=== PATIENT | male | born 1980 | race Caucasian/White ===

== ENCOUNTER 2019-12-28 21:43 | Inpatient (IN) | payer MEDICAID, OTHER ==
--- NOTE | 2019-12-28 22:09 | ED ---
Skin Complaint - HPI Summary HPI Summary: 39 y/o M presenting to [facility] with a chief complaint of multiple erythematous sores with purulent discharge initially onset 4-5 days ago. He reports that he had showered outside using an exfoliating glove and noticed a sensitive spot in the right gluteal cleft. He states he had a robe lying on a chair outside and put it back on before going back inside and is concerned that there was a spider inside the robe, causing him to be bitten and subsequently causing the development of a rash extending buttocks into the thighs. The pain is throughout the right leg, and there is swelling in the right ankle. Symptoms rated 6/10 in severity. Touch and clothing aggravate the pain. He endorses intermittent sensation of fevers and chills. He denies any nausea, vomiting, diarrhea, constipation. He notes a history of severe cellulitis in the upper extremity multiple years ago. Admits to marijuana use. Nonsmoker, no EtOH use. Medications reviewed. Allergies noted. - History of Current Complaint Time Seen by Provider: 12/28/19 21:54 Stated Complaint: SPIDER BITE RASH ON THIGHS PER PT Hx Obtained From: Patient Onset/Duration: Started Days Ago - 4-5, Still Present Timing: Constant Onset Severity: Mild Current Severity: Moderate Pain Intensity: 6 Pain Scale Used: 0-10 Numeric Skin Location: Other: - buttocks extending to the thighs Character: Pain, Redness Aggravating Symptom(s): Clothing, Touch Alleviating Symptom(s): Clothing Removal Associated Signs & Symptoms: Fever - sensation, Chills - sensation, Rash Related History: Possible Reaction to: Insect - patient concerned for spider bite - Allergy/Home Medications Allergies/Adverse Reactions: Allergies Allergy/AdvReac Type Severity Reaction Status Date / Time No Known Allergies Allergy Verified 12/28/19 21:59 PMH/Surg Hx/FS Hx/Imm Hx Endocrine/Hematology History: Denies: Hx Diabetes Cardiovascular History: Denies: Hx Hypertension Musculoskeletal History: Reports: Other Musculoskeletal History - cellulitis - Surgical History Surgical History: None Surgery Procedure, Year, and Place: none Infectious Disease History: Yes Infectious Disease History: Denies: Traveled Outside the [place] in Last 30 Days - Family History Known Family History: Negative: Renal Disease, Respiratory Disease, Seizure Disorder - Social History Alcohol Use: None Hx Substance Use: Yes Substance Use Type: Reports: Marijuana Hx Tobacco Use: No Smoking Status (MU): Never Smoked Tobacco Review of Systems Positive: Fever - sensation, Chills - sensation Negative: Vomiting, Diarrhea, Nausea, Other - constipation Positive: Myalgia - right leg, Edema - r ankle Positive: Other - diffuse erythematous sores under the buttocks into the thighs All Other Systems Reviewed And Are Negative: Yes Physical Exam - Summary Physical Exam Summary: Constitutional: Well-developed, Well-nourished, Alert. (-) Distressed Skin: Warm, Dry; Erythema in the bilateral gluteal cleft that is indurated and tender extending into the upper posterior thigh bilaterally, No scrotal erythema , No areas of fluctuance or drainage, No crepitus HENT: Normocephalic; Atraumatic Eyes: Conjunctiva normal Neck: Musculoskeletal ROM normal neck. (-) JVD, (-) Stridor, (-) Tracheal deviation Cardio: Rhythm regular, rate normal, Heart sounds normal; Intact distal pulses; Radial pulses are 2+ and symmetric. (-) Murmur Pulmonary/Chest wall: Effort normal. (-) Respiratory distress, (-) Wheezes, (-) Rales Abd: Soft, (-) tenderness, (-) Distension, (-) Guarding, (-) Rebound Musculoskeletal: (-) Edema Lymph: (-) Cervical adenopathy Neuro: Alert, Oriented x3 Psych: Mood and affect Normal Triage Information Reviewed: Yes Vital Signs On Initial Exam: Initial Vitals Temp Pulse Resp BP Pulse Ox 98.3 F 98 18 144/102 98 12/28/19 21:56 12/28/19 21:56 12/28/19 21:56 12/28/19 21:56 12/28/19 21:56 Vital Signs Reviewed: Yes Procedures - Sedation Patient Received Moderate/Deep Sedation with Procedure: No Diagnostics - Vital Signs Vital Signs Temp Pulse Resp BP Pulse Ox 12/28/19 21:56 98.3 F 98 18 144/102 98 - Laboratory Result Diagrams: 12/28/19 22:47 12/28/19 22:47 Lab Statement: Any lab studies that have been ordered have been reviewed, and results considered in the medical decision making process. - CT Pelvic CT CT Interpretation Completed By: Radiologist Summary of CT Findings: Impression: Moderate soft tissue swelling and skin thickening in bilateral medial gluteal region extending into the perianal region likely representing cellulitis. No focal collection. No drainable abscess formation. No gas within the soft tissues. Findings most likely represent cellulitis. Dr. Cordon has reviewed this report. - EKG 2148 Cardiac Rate: NL - 74 BPM EKG Rhythm: Sinus Rhythm EKG Comparison: No Significant Change - Unchanged from previous on 09/16/2013. Summary of EKG Findings: NSR at rate of [address] depression in aVF, V4. No STEMI. Unchanged from previous on 09/16/2013. Dr. Cordon has reviewed and interpreted this EKG. Re-Evaluation - Re-Evaluation First Eval Re-Evaluation Time: 23:50 Comment: Patient agreeable with plan for admission Course/Dx - Course Course Of Treatment: Patient is here cellulitis to his gluteal cleft and going into his thighs. Patient has no perineal cellulitis or scrotal erythema. However, given patient's saline-soaked location, a CT scan was performed. Patient is noted face abscess or signs of Jean's gangrene. Patient's blood work was grossly unremarkable. However, given patient's extensive cellulitis and the location, patient was admitted to the hospital for IV antibiotics. - Diagnoses Provider Diagnoses: Cellulitis - Physician Notifications Discussed Care Of Patient With: Rose Perez - hospitalist Time Discussed With Above Provider: 23:55 Instructed by Provider To: Other - I discussed the patients case with Dr. Perez , who accepts the patient for admission. Discharge ED - Sign-Out/Discharge Documenting (check all that apply): Patient Departure - Patient accepted for admission by Dr. Perez. - Discharge Plan Condition: Stable Disposition: ADMITTED TO [facility] - Billing Disposition and Condition Condition: STABLE Disposition: Admitted to [facility] - Attestation Statements Document Initiated by Christy: Yes Documenting Scribe: Leticia Ledbetter Provider For Whom Christy is Documenting (Include Credential): Shashank Cordon MD Scribe Attestation: Leticia Carpenter, scribed for Shashank Cordon MD on 12/29/19 at 0122. Scribe Documentation Reviewed: Yes Provider Attestation: The documentation as recorded by the Leticia farias accurately reflects the service I personally performed and the decisions made by me, Shashank Cordon MD Status of Scribe Document: Viewed
[2019-12-28] MEDS ORDERED: NS 0.9% 1000 ML** 1,000 ML IV ONE (22:11)
[2019-12-28] MEDS ORDERED: Vancomycin(*) 1,500 MG in NS 0.9% 250 ML* 250 ML IVPB ONE (22:13)
[2019-12-28] MEDS ORDERED: Piperacillin/Tazobac ADVAN(*) 3.375 GM in NS 0.9% 100 ML* 100 ML IVPB ONE (22:13)
[2019-12-28 22:54] LABS: ABS Eosinophils 0.4 10^3/ul (0-0.6); ABS Lymphocytes 2.1 10^3/ul (1.0-4.8); ABS Monocytes 0.5 10^3/ul (0-0.8); ABS Neutrophils 3.7 10^3/ul (1.5-7.7); Eosinophil % 6.2 %; Hematocrit 40 % (42-52); Hemoglobin 13.6 g/dL (14.0-18.0); Lymphocyte % 30.5 %; Mean Corpuscular HGB Conc 34 g/dL (31-36); Mean Corpuscular Hemoglobin 31 pg (27-31); Mean Corpuscular Volume 92 fL (80-94); Mean Platelet Volume 8.2 fL (7.4-10.4); Nucleated Red Blood Cells % 0.1; Platelet Count 262 10^3/uL (150-450); Red Blood Count 4.39 10^6 /uL (4.18-5.48); Red Cell Distribution Width 14 % (10-15); White Blood Count 6.8 10^3/uL (3.5-10.8)
[2019-12-28 23:11] LABS: Albumin 3.9 g/dL (3.2-5.2); Albumin/Globulin Ratio 1.7 (1-3); BUN/Creatinine Ratio 11.5 (8-20); C Reactive Protein 6.98 mg/L (<8.01); EGFR African American 132.7 (>60); EGFR Non-African American 109.7 (>60); Globulin 2.3 g/dL (2-4); Potassium 3.6 mmol/L (3.5-5.0); Total Bilirubin 0.4 mg/dL (0.2-1.0); Total Protein 6.2 g/dL (6.4-8.9)
[2019-12-28] MEDS ORDERED: Iohexol 300* (CONTRAST) 10 ML SDV IV ONE (23:18)
[2019-12-29] MEDS ORDERED: Vancomycin per Pharmacy* NOTE FOLLOW UP SCH (01:00)
[2019-12-29] MEDS ORDERED: NS 0.9% 1000 ML** 1,000 ML IV SCH (01:00)
--- NOTE | 2019-12-29 01:23 | HP ---
History of Present Illness - History of Present Illness Reason for Visit: Redness and Pain on perianal area History of Present Illness: This is a 39 M with no significant past medical history presented with complaint of redness and pain on consuelo-anal area for 4 days. According to patient he was apparently well 4 days ago then he started noticing burning pain on his buttocks. 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 Then he put his robe and after 10 minutes he started having pain and redness. He also tells me that if there was any insect or spider on his robe as he was showering outside. Since then he started having pain and redness and is progressing. Then later he started noticing yellowish discharge. His pain is sharp, 6/10 and is aggravated by touch with radiation to right leg. SInce this morning he started having subjective associated with chills and rigor. No maximum temperature recorded at home. SO, this pain and fever prompted him to come to the ED. HE adds that since 4-5 hours he is having lower abdominal pain and feels sore on his perineal area. He states that he feel like if somewhat has kicked on his scrotum. He is also having dysuria but no increased frequency. He has not urinated since he has been in the ED. He also has left upper chest pain which has been present for years, dull type and nonexertional. He denies cough, SOB, palpitation, nausea, vomiting, numbness and tingling. In ED, his vitals sign are stable. Blood work is normal. Pelvic CT showed Gluteal cellulitis with no gas or abscess. EKG showing Mild ST depression but no change since previous one. He received vancomycin, zosyn and IVF in ED and hospitalist service was asked to admit him for cellulitis and pain management. - Past Medical History Past Medical History: He does not have PCP and has not been to Doctor for many years. SO he is not aware about history of HTN, DM, Heart Disease. But he tells me that he gets frequent Bronchitis but not on any medication. - Past Surgical History Past Surgical History: 1. Hand Surgery 2. Hernia repair as kid - Past Family History Past Family History: Family history positive for Cancer, Heart disease. Both of his parents have Hepatitis C. 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 He does not have insurance. He denies tobacco and alcohol use. He smokes Marijhuana but no IV drug use. He is full code. Medications: None Allergies/Adverse Reactions: Allergies Allergy/AdvReac Type Severity Reaction Status Date / Time No Known Allergies Allergy Verified 12/28/19 21:59 Review of Systems - Review of Systems Constitutional: Positive: Fever, Chills, Sweats. Negative: Weakness, Malaise, Other Eyes: Negative: Pain, Vision Change, Conjunctivae Inflammation, Eyelid Inflammation, Redness, Other ENT: Negative: Ear Pain, Ear Discharge, Nose Pain, Nose Discharge, Nose Congestion, Mouth Pain, Mouth Swelling, Throat Pain, Throat Swelling, Other Respiratory: Negative: Cough, Dry, Shortness of Breath, Hemoptysis, SOB with Excertion, Pleuritic Pain, Sputum, Wheezing Cardiovascular: Positive: Chest Pain. Negative: Palpitations, Orthopnea, Paroxysmal Noc. Dyspnea, Edema, Light Headedness, Other Gastrointestinal: Positive: Abdominal Pain. Negative: Nausea, Vomiting, Diarrhea, Constipation, Melena, Hematochezia, Other Genitourinary: Positive: Dysuria. Negative: Frequency, Incontinence, Hematuria , Retention, Other Musculoskeletal: Positive: Leg Pain. Negative: Neck Pain, Shoulder Pain, Arm Pain, Back Pain, Hand Pain, Foot Pain, Other Skin: Positive: Lesions. Negative: Rash, Popeye, Bruising, Other Neurological/Mental Status: Negative: Weakness, Numbness, Incoordination, Change in Speech, Confusion, Seizures, Other Exam Vital Signs: Vital Signs (72 hours) 12/28/19 12/28/19 12/28/19 21:56 22:06 22:56 Temperature 98.3 F Pulse Rate 98 86 77 Respiratory 18 Rate Blood Pressure 144/102 112/81 (mmHg) O2 Sat by Pulse 98 97 100 Oximetry 12/28/19 12/28/19 12/29/19 23:00 23:56 00:00 Temperature Pulse Rate 70 85 77 Respiratory Rate Blood Pressure 124/84 (mmHg) O2 Sat by Pulse 98 99 99 Oximetry 12/29/19 12/29/19 12/29/19 00:06 00:26 01:00 Temperature Pulse Rate 87 83 79 Respiratory Rate Blood Pressure 139/90 (mmHg) O2 Sat by Pulse 98 97 98 Oximetry Exam: GENERAL APPEARANCE: well-nourished male in no acute distress. HEENT: Normocephalic and atraumatic. No scleral icterus. Pupils are equal, round , and reactive to light and accommodation NECK: Supple. Trachea is midline. No evidence of thyroid enlargement. No lymphadenopathy or tenderness. CHEST: Symmetric. Nontender to palpation. LUNGS: Breath sounds are equal bilaterally. No added sounds HEART: Regular rhythm.normal S1 and S2. No murmurs, gallops, or rubs. ABDOMEN: Soft, obese and nontender. No mass, tenderness, guarding, or rebound. No organomegaly or hernia. Bowel sounds are present. No CVA tenderness or flank mass. SKIN: Redness present on bilateral medial gluteal area with no purulent discharge and is tender. Redness extended till inner thigh. No redness and tenderenss on scrotum and penile area. No fluctuance noted. EXTREMITIES: No clubbing and cyanosis NEUROLOGIC: No focal sensory or motor deficits are noted. Cranial nerves II through XII are intact. Deep tendon reflexes are intact. Result Diagrams: 12/28/19 22:47 12/28/19 22:47 Assessment/Plan - Assessment/Plan Assessment: This is a 39 M with no significant PMH presented with acute redness, pain and discharge on bilateral gluteal area associated with fever and chills preceeded by questionable insect bite. FOund to have non purulent cellulitis of Gluteal and perianal area with no evidence of abscess and gas on CT. Plan: 1. Cellulitis: Bilateral gluteal cellulitis- nonpurulent. -D/D: Erysipelas, Abscess -Cause: secondary to trauma or insect bite -Vitals stable and normal leucocytes -We will start him on Clindamycin- covering for MRSA and also anaerobes given the location of the cellulitis. -Scrotum(has piercing) and Penile area normal- no concern for gangrene -Pain: As started has not taken any pain meds we will first start with Tylenol and NSAIDS. If pain still not controlled then will escalate his pain meds. 2. Dysuria - dysuria and abdominal pain(although his history is inconstinent) - We will send Urinalysis to rule out UTI and we will also rule out Gonorrhea and Chlamydia -We start gram negative coverage based on the result 3. DVT prophylaxis -On lovenox 4. Full code Attestation Documenting Resident: Dr. Early Supervising Physician: Dr. Perez Attending/Supervising Physician Comment: Dr. Perez Patient seen and discussed with Dr. Early. Agree with assessment and plan. Admission for close monitoring of cellulitis given region of infection. Would consider STI testing as well. Attestation: This service has been performed in part by a resident under the direction of a teaching physician.I, Dr. Perez, performed the service, or was physically present during the critical, or lea portions of the service, furnished by the resident. I participated in the management of the patient.
[2019-12-29 02:13] LABS: Urine Appearance Clear; Urine Bilirubin Negative (Negative); Urine Blood Negative (Negative); Urine Color Straw; Urine Glucose Negative (Negative); Urine Ketones Negative (Negative); Urine Nitrite Negative (Negative); Urine Protein Negative (Negative); Urine Specific Gravity 1.019 (1.010-1.030); Urine Urobilinogen Negative (Negative)
[2019-12-29] MEDS ORDERED: diPHENhydraMINE PO* 25 MG PO ONE (02:49)
[2019-12-29] MEDS: Acetaminophen TAB* 325 MG PO PRN ×2 (03:10→07:59)
[2019-12-29] MEDS: Clindamycin 600 MG/D5W BAG(*) 600 MG/50 ML BAG IV SCH ×2 (07:46→15:43)
[2019-12-29] MEDS: Enoxaparin(*) 40 MG/0.4 ML SYR SUBCUT SCH (07:46)
[2019-12-29] MEDS: Morphine INJ* 2 MG/ML 1 ML SYRINGE (TWO MG - NEW SYRINGE VERSION) IV PRN ×2 (08:20→18:00)
[2019-12-29] MEDS ORDERED: Vancomycin(*) 1,500 MG in NS 0.9% 250 ML* 250 ML IVPB SCH (09:00)
[2019-12-29] MEDS ORDERED: Lorazepam PYXIS KEY PRN (09:02)
[2019-12-29] MEDS ORDERED: LORazepam INJ* 2 MG/ML 1 ML VIAL ONE (09:03)
[2019-12-29] MEDS: LORazepam INJ* 2 MG/ML 1 ML VIAL IV PUSH PRN (11:49)
--- NOTE | 2019-12-29 13:44 | PN ---
Subjective Date of Service: 12/29/19 Interval History: Mr. Zarate is feeling okay this morning. He is having a lot of pain in his groin and inner thighs. He thinks bilat inner thighs are very swollen. He is feeling anxious. Has a bit of a cough this morning and feeling a little SOB. Denies CP. Nursing reports continued cough and c/o SOB. Family History: Unchanged from Admission Social History: Unchanged from Admission Past Medical History: Unchanged from Admission Objective Active Medications: Acetaminophen (Tylenol Tab*) 650 mg PO Q6H PRN PAIN - MILD Enoxaparin Sodium (Lovenox(*)) 40 mg SUBCUT Q24H HEBER Clindamycin HCl/Dextrose (Cleocin 600 Mg/50 Ml(*)) 600 mg in 50 mls @ 100 mls/ hr IV Q8H HEBER Lorazepam (Ativan Inj*) 1 mg IV PUSH Q6H PRN ANXIETY Morphine Sulfate (Morphine Inj (Syringe))*) 2 mg IV Q4H PRN PAIN - SEVERE Vital Signs - 8 hr 12/29/19 12/29/19 12/29/19 06:08 07:32 08:00 Temperature 98.3 F Pulse Rate 69 Respiratory 20 17 18 Rate Blood Pressure 109/52 (mmHg) O2 Sat by Pulse 96 Oximetry 12/29/19 12/29/19 12/29/19 10:26 10:29 11:49 Temperature 98.4 F Pulse Rate 69 Respiratory 18 18 32 Rate Blood Pressure 116/64 (mmHg) O2 Sat by Pulse 98 Oximetry Oxygen Devices in Use Now: None Appearance: Middle-aged male sitting in bed in NAD Ears/Nose/Mouth/Throat: Mucous Membranes Moist Neck: NL Appearance and Movements; NL JVP, Trachea Midline Respiratory: Symmetrical Chest Expansion and Respiratory Effort, Clear to Auscultation Cardiovascular: NL Sounds; No Murmurs; No JVD, RRR Abdominal: NL Sounds; No Tenderness; No Distention Extremities: - - Moderate nonpitting bilat inner thighs and groin Skin: - - Erythema to bilat medial thighs and groin Neurological: Alert and Oriented x 3 Lines/Tubes/Other Access: Clean, Dry and Intact Peripheral IV Nutrition: Taking PO's Result Diagrams: 12/28/19 22:47 12/28/19 22:47 Assess/Plan/Problems-Billing Assessment: Mr. Zarate is a 39 yo M with no significant PMH who presented to the ED with c/o pain and redness in the groin and was found to have extensive cellulitis. - Patient Problems (1) Cellulitis of groin Code(s): L03.314 - CELLULITIS OF GROIN Comment: - Nonpurulent, extending from buttocks to medial thighs - CT on admission showing cellulitis in bilat medial gluteal region extending into perianal area - Unclear etiology: trauma (scrubbing with gloves) vs insect bites - Attempt to obtain culture today; no obvious drainage, but patient reports weeping - Continue clinda, morphine (2) Cough Code(s): R05 - COUGH Comment: - Occasional nonproductive cough noted this morning with reports of SOB - Cough is reported to be chronic from patient's mother (patient does smoke marijuana regularly), and SOB may be r/t anxiety - Will need to r/o COVID based on criteria, but suspicion is low - Swab today and transfer to COVID unit (3) DVT prophylaxis Code(s): Z29.9 - ENCOUNTER FOR PROPHYLACTIC MEASURES, UNSPECIFIED Comment: - Lovenox (4) Full code status Code(s): Z78.9 - OTHER SPECIFIED HEALTH STATUS Comment: Status and Disposition: Observation. Anticipate d/c home when cellulitis is improving. Attending: Mica Saba
[2019-12-29] MEDS: Nystatin OINT* 15 GM TOPICAL SCH (21:06)
--- NOTE | 2019-12-29 22:17 | PN ---
Progress Note - Progress Note Date of Service: 12/29/19 Note: Patient seen for cough and shortness of Breath. According to patient he started having cough and SOB since this morning at around 4-5 AM. He states that he drank cold liquid and since then he started having shortness of breath at rest and dry cough. He denies palpitation, fever, chills and loss of appetite. He is also complaining of back pain which he thinks is because of lying on a bed for a long time. Patient is saturating 100% on 1 L of oxygen and states that oxygen is making him feel better. He denies exposure to COVID patient and is staying indoor for months. Given the nature of symptoms which is so acute there is low suspicion of COVID; although could have been asymptomatic carrier. He has already been swabbed. I will order and CXR, sputum culture(if able to cough up) and also ABG as he is hyperventilating. We will follow with the results.
[2019-12-30] MEDS: LORazepam INJ* 2 MG/ML 1 ML VIAL IV PUSH PRN ×3 (00:53→21:05)
[2019-12-30] MEDS: Morphine INJ* 2 MG/ML 1 ML SYRINGE (TWO MG - NEW SYRINGE VERSION) IV PRN ×3 (00:53→23:14)
[2019-12-30] MEDS: Clindamycin 600 MG/D5W BAG(*) 600 MG/50 ML BAG IV SCH ×3 (01:32→17:33)
[2019-12-30 07:04] LABS: ABS Eosinophils 0.4 10^3/ul (0-0.6); ABS Monocytes 0.5 10^3/ul (0-0.8); ABS Neutrophils 3.4 10^3/ul (1.5-7.7); Hematocrit 39 % (42-52); Hemoglobin 13.3 g/dL (14.0-18.0); Lymphocyte % 30.7 %; Mean Corpuscular HGB Conc 34 g/dL (31-36); Mean Corpuscular Hemoglobin 32 pg (27-31); Mean Corpuscular Volume 92 fL (80-94); Mean Platelet Volume 8.3 fL (7.4-10.4); Nucleated Red Blood Cells % 0.1; Platelet Count 232 10^3/uL (150-450); Red Blood Count 4.22 10^6 /uL (4.18-5.48); Red Cell Distribution Width 14 % (10-15); White Blood Count 6.3 10^3/uL (3.5-10.8)
[2019-12-30 07:20] LABS: BUN/Creatinine Ratio 12.8 (8-20); C Reactive Protein 11.6 mg/L (<8.01); Calcium 8.6 mg/dL (8.6-10.3); EGFR African American 132.7 (>60); EGFR Non-African American 109.7 (>60); Potassium 4.3 mmol/L (3.5-5.0)
[2019-12-30] MEDS: Enoxaparin(*) 40 MG/0.4 ML SYR SUBCUT SCH (07:51)
[2019-12-30] MEDS: Nystatin OINT* 15 GM TOPICAL SCH ×2 (07:52→23:19)
[2019-12-30] MEDS: diPHENhydraMINE PO* 25 MG PO PRN ×2 (13:33→23:15)
--- NOTE | 2019-12-30 15:01 | PN ---
Subjective Date of Service: 12/30/19 Interval History: Mr. Zarate is feeling poor today. He is feeling very SOB. Usually has a wet cough at baseline, but cough is now very dry. Coughing fits and exertion cause significant SOB. Feels like he cannot take a deep breath. He does not think cellulitis is improving. Buttocks and medial thighs are very itchy. Nursing reports elevated RR and anxiety. Family History: Unchanged from Admission Social History: Unchanged from Admission Past Medical History: Unchanged from Admission Objective Active Medications: Acetaminophen (Tylenol Tab*) 650 mg PO Q6H PRN PAIN - MILD Diphenhydramine HCl (Benadryl Po*) 25 mg PO Q6H PRN ITCHING Enoxaparin Sodium (Lovenox(*)) 40 mg SUBCUT Q24H HEBER Clindamycin HCl/Dextrose (Cleocin 600 Mg/50 Ml(*)) 600 mg in 50 mls @ 100 mls/ hr IV Q8H HEBER Lorazepam (Ativan Inj*) 1 mg IV PUSH Q6H PRN ANXIETY Morphine Sulfate (Morphine Inj (Syringe))*) 2 mg IV Q4H PRN PAIN - SEVERE Nystatin (Nystatin Oint*) 1 applic TOPICAL BID HEBER Vital Signs - 8 hr 12/30/19 12/30/19 12/30/19 07:51 08:00 09:16 Temperature 97.4 F Pulse Rate 69 Respiratory 19 20 20 Rate Blood Pressure 101/57 (mmHg) O2 Sat by Pulse 99 Oximetry 12/30/19 12/30/19 12/30/19 10:16 12:21 12:45 Temperature 97.6 F Pulse Rate 63 Respiratory 18 40 40 Rate Blood Pressure 113/71 (mmHg) O2 Sat by Pulse 100 Oximetry Oxygen Devices in Use Now: None Appearance: Middle-aged male lying in bed, anxious, but in NAD Ears/Nose/Mouth/Throat: Mucous Membranes Moist Neck: NL Appearance and Movements; NL JVP, Trachea Midline Respiratory: Symmetrical Chest Expansion and Respiratory Effort, Clear to Auscultation Cardiovascular: NL Sounds; No Murmurs; No JVD, RRR Abdominal: NL Sounds; No Tenderness; No Distention Extremities: No Edema Skin: - - Erythema and edema to bilat medial thigh Neurological: Alert and Oriented x 3 Lines/Tubes/Other Access: Clean, Dry and Intact Peripheral IV Nutrition: Taking PO's Result Diagrams: 12/30/19 06:51 12/30/19 06:51 Assess/Plan/Problems-Billing Assessment: Mr. Zarate is a 39 yo M with no significant PMH who presented to the ED with c/o pain and redness in the groin and was found to have extensive cellulitis. - Patient Problems (1) Cellulitis of groin Code(s): L03.314 - CELLULITIS OF GROIN Comment: - Nonpurulent, extending from buttocks to medial thighs - CT on admission showing cellulitis in bilat medial gluteal region extending into perianal area - Unclear etiology: trauma (scrubbing with gloves) vs insect bites - There may be some component of gela - Attempt to obtain culture today; no obvious drainage, but patient reports weeping - Continue clinda, nystatin (2) Cough Code(s): R05 - COUGH Comment: - Occasional nonproductive cough with reports of SOB - Cough is reported to be chronic from patient's mother (patient does smoke marijuana regularly), and SOB may be r/t anxiety - CXR unremarkable - Pending COVID swab; patient is concerned that swab was not done correctly, so will reswab today per patient request (3) DVT prophylaxis Code(s): Z29.9 - ENCOUNTER FOR PROPHYLACTIC MEASURES, UNSPECIFIED Comment: - Lovenox (4) Full code status Code(s): Z78.9 - OTHER SPECIFIED HEALTH STATUS Comment: Status and Disposition: Observation. Anticipate d/c home when cellulitis is improving. Attending: Mica Saba
[2019-12-30] MEDS ORDERED: guaiFENesin/CODIENE 100mg/10mg 5 ML UDC PO PRN (20:08)
[2019-12-30] MEDS: Acetaminophen TAB* 325 MG PO PRN (23:15)
[2019-12-31] MEDS: Clindamycin 600 MG/D5W BAG(*) 600 MG/50 ML BAG IV SCH ×2 (00:30→09:16)
[2019-12-31] MEDS: LORazepam INJ* 2 MG/ML 1 ML VIAL IV PUSH PRN ×2 (09:03→21:43)
[2019-12-31] MEDS: Morphine INJ* 2 MG/ML 1 ML SYRINGE (TWO MG - NEW SYRINGE VERSION) IV PRN ×3 (09:03→21:26)
[2019-12-31] MEDS: Nystatin OINT* 15 GM TOPICAL SCH ×2 (09:05→21:22)
[2019-12-31] MEDS: Enoxaparin(*) 40 MG/0.4 ML SYR SUBCUT SCH (09:05)
[2019-12-31] MEDS ORDERED: Clindamycin 600 MG/NS BAG(*) 600 MG/50 ML BAG IV SCH (16:00)
[2019-12-31] MEDS: Piperacillin/Tazobac ADVAN(*) 3.375 GM in NS 0.9% 100 ML* 100 ML IVPB SCH (16:26)
[2019-12-31] MEDS: Albuterol HFA INHALER* 8 gm MDI INH PRN (16:27)
--- NOTE | 2019-12-31 19:40 | PN ---
Subjective Date of Service: 12/31/19 Interval History: Pt stated that he was having chest pain throughout his entire chest and somewhat moreso to his L side of his chest, tight, sharp at times, pain with breathing and increases with deep breathing. Nothing alleviates this pain. Slightly worse with walking. No radiation. Unsure if this is what he was feeling yesterday. States SOB, not brought on by anything but worse with walking. Believes increased RR since yesterday. Has cough but not coughing anything up. Requesting ativan as it has been ordered for him PRN. States that he continues to have severe pain to his buttocks and perianal area. States that he has had drainage from these areas but does not describe it and there is no drainage noted to these areas or on the jockey valet pad on his bed which he has been laying on. Believes new rash to his back and legs, states that he has been itchy "all over ". Continue to await for COVID-19 results. Family History: Unchanged from Admission Social History: Unchanged from Admission Past Medical History: Unchanged from Admission Objective Active Medications: Acetaminophen (Tylenol Tab*) 650 mg PO Q6H PRN PRN Reason: PAIN - MILD Last Admin: 12/30/19 23:15 Dose: 650 mg Albuterol (Ventolin Hfa Inhaler*) 2 puff INH Q2H PRN PRN Reason: SOB/WHEEZING Last Admin: 12/31/19 16:27 Dose: 2 puff Diphenhydramine HCl (Benadryl Po*) 25 mg PO Q6H PRN PRN Reason: ITCHING Last Admin: 12/30/19 23:15 Dose: 25 mg Docusate Sodium (Colace Cap*) 100 mg PO BID PRN PRN Reason: CONSTIPATION Enoxaparin Sodium (Lovenox(*)) 40 mg SUBCUT Q24H [facility] Last Admin: 12/31/19 09:05 Dose: 40 mg Guaifenesin/Codeine Phosphate (Robitussin Ac 100mg/10mg In 5 Ml) 5 ml PO Q4H PRN PRN Reason: COUGH Last Admin: 12/30/19 21:04 Dose: 5 ml Piperacillin Sod/Tazobactam (Sod 3.375 gm/ Sodium Chloride) 100 mls @ 25 mls/ hr IVPB Q8H [facility] Last Admin: 12/31/19 16:26 Dose: 25 mls/hr Lorazepam (Ativan Inj*) 1 mg IV PUSH Q6H PRN PRN Reason: ANXIETY Last Admin: 12/31/19 09:03 Dose: 1 mg Magnesium Hydroxide (Milk Of Magnpeyman Liq*) 30 ml PO Q6H PRN PRN Reason: CONSTIPATION Miscellaneous (Ativan Pyxis Vivas) 1 ea N/A .ATIVAN IV VIVAS PRN PRN Reason: PYXIS VIVAS Morphine Sulfate (Morphine Inj (Syringe))*) 2 mg IV Q4H PRN PRN Reason: PAIN - SEVERE Last Admin: 12/31/19 14:03 Dose: 2 mg Nystatin (Nystatin Oint*) 1 applic TOPICAL BID [facility] Last Admin: 12/31/19 09:05 Dose: 1 applic Senna (Senokot 8.6 Mg Tab*) 1 tab PO BEDTIME PRN PRN Reason: CONSTIPATION Vital Signs - 8 hr 12/31/19 12/31/19 12/31/19 14:03 15:12 16:38 Temperature 98.9 F 97.3 F Pulse Rate 93 69 Respiratory 18 20 18 Rate Blood Pressure 116/60 118/60 (mmHg) O2 Sat by Pulse 100 100 Oximetry Oxygen Devices in Use Now: Nasal Cannula Appearance: laying in bed, mild distress Eyes: No Scleral Icterus Ears/Nose/Mouth/Throat: Clear Oropharnyx Respiratory: Symmetrical Chest Expansion and Respiratory Effort - deep breathing illicits harsh loud cough, deep harsh bronchial sounds noted during cough and throughout lung mac, no other adventitious sounds noted, lungs diminished with otherwise shallow and quick breathing Cardiovascular: RRR Abdominal: NL Sounds; No Tenderness; No Distention Extremities: No Edema - of bilateral calves and feet, - Skin: - - blotchy red flat rash noted to back, bilateral flanks, upper thighs anteriorly and posteriorly, blanchable. Much darker almost purple/dusky red swollen and hardened areas to upper inner posterior thighs, bilateral lower buttocks and perianal area, no active drainage noted, uniform firmness/swelling/ color throughout, also blanchable. Neurological: Alert and Oriented x 3 - appears groggy at times but alert and stays awake throughout conversation Nutrition: Taking PO's Result Diagrams: 12/30/19 06:51 12/30/19 06:51 Microbiology and Other Data: Microbiology 12/31/19 00:00 Gram Stain - Final Sputum Expectorated 12/28/19 22:47 Aerobic Blood Culture - Preliminary Blood Venous No Growth Day 2 Anaerobic Blood Culture - Preliminary No Growth Day 2 12/28/19 22:27 Aerobic Blood Culture - Preliminary Blood Venous No Growth Day 2 Anaerobic Blood Culture - Preliminary No Growth Day 2 EKG Data: Abnormal Lab Results 12/31/19 15:59 Troponin I 0.00 Assess/Plan/Problems-Billing Assessment: Mr. Zarate is a 39 yo M with no significant PMH who presented to the ED with c/o pain and redness in the groin and was found to have extensive cellulitis. - Patient Problems (1) Cellulitis of groin Current Visit: Yes Status: Acute Code(s): L03.314 - CELLULITIS OF GROIN SNOMED Code(s): 38655749 Comment: - Nonpurulent, extending from buttocks to medial thighs - CT on admission showing cellulitis in bilat medial gluteal region extending into perianal area - Unclear etiology: trauma (scrubbing with gloves) vs insect bites - There may be some component of gela - No active drainage or area of obvious fluid collection for culture - D/c clindamycin in r/t rash - Start zosyn for wide coverage including anaerobes - this was discussed with (2) Chest pain Current Visit: Yes Status: Acute Code(s): R07.9 - CHEST PAIN, UNSPECIFIED SNOMED Code(s): 54962245 Comment: No ischemic changes on EKG, troponins negative, had c/o CP on prior dates as well during this admission, no concern for ischemic event at this time , likely in relation to what may be a pulmonary pathology Continue to monitor (3) Cough Current Visit: Yes Status: Acute Code(s): R05 - COUGH SNOMED Code(s): 91477998 Comment: - Occasional nonproductive cough with reports of SOB - Cough is reported to be chronic from patient's mother (patient does smoke marijuana regularly) although pt states that this seems worse than usual, ? bronchitis, reports from nursing that pt's RR normal when unaware of staff observation - CXR unremarkable -Awaiting results of COVID-19 swab - Pending COVID swab; patient is concerned that swab was not done correctly, so will reswab today per patient request (4) History of dysuria Current Visit: Yes Status: Acute Code(s): Z87.898 - PERSONAL HISTORY OF OTHER SPECIFIED CONDITIONS SNOMED Code(s): 400055721 Comment: Had been reporting dysuria but denies currently - GC/chlamydia urine pending (5) DVT prophylaxis Current Visit: Yes Status: Acute Code(s): Z29.9 - ENCOUNTER FOR PROPHYLACTIC MEASURES, UNSPECIFIED SNOMED Code(s): 360222581 Comment: - Lovenox (6) Full code status Current Visit: Yes Status: Acute Code(s): Z78.9 - OTHER SPECIFIED HEALTH STATUS SNOMED Code(s): 682247918 Comment: Status and Disposition: Status: guarded Disposition: 4N Attending: Marco Antonio Lai
[2019-12-31] MEDS: Senna TAB 8.6 mg* TAB PO PRN (21:30)
[2019-12-31] MEDS: Docusate CAP* 100 MG PO PRN (21:30)
[2020-01-01] MEDS: Piperacillin/Tazobac ADVAN(*) 3.375 GM in NS 0.9% 100 ML* 100 ML IVPB SCH ×4 (00:54→23:47)
[2020-01-01] MEDS: diPHENhydraMINE PO* 25 MG PO PRN (01:00)
[2020-01-01] MEDS: Magnesium Hydroxide LIQ* 30 ML UDC PO PRN ×2 (07:37→22:17)
[2020-01-01] MEDS: Nystatin OINT* 15 GM TOPICAL SCH ×2 (07:37→20:52)
[2020-01-01] MEDS: Acetaminophen TAB* 325 MG PO PRN ×2 (07:37→20:51)
[2020-01-01] MEDS: Docusate CAP* 100 MG PO PRN ×2 (07:37→22:17)
[2020-01-01] MEDS: Enoxaparin(*) 40 MG/0.4 ML SYR SUBCUT SCH (07:37)
[2020-01-01] MEDS: Morphine INJ* 2 MG/ML 1 ML SYRINGE (TWO MG - NEW SYRINGE VERSION) IV PRN (07:47)
[2020-01-01] MEDS: Albuterol HFA INHALER* 8 gm MDI INH PRN (07:55)
[2020-01-01] MEDS: LORazepam TAB(*) 0.5 MG PO PRN (17:01)
[2020-01-01] MEDS: oxyCODONE/Acetamin 5/325 MG* TAB PO PRN ×2 (17:01→22:17)
--- NOTE | 2020-01-01 18:57 | PN ---
Subjective Date of Service: 01/01/20 Interval History: Pt continues to be tachypneic but appears slightly less distressed than yesterday. States SOB still. Continues to c/o CP with same quality as yesterday , also with L-sided lateral chest pain which he is now stating he does not believe was present on arrival. Not coughing anything up. States that buttocks/thighs still hurt but can tell that they are less swollen. Still c/o itchiness from rash that had developed to back/flanks/thighs, does not believe this is improving. States abdominal discomfort with applied pressure. Family History: Unchanged from Admission Social History: Unchanged from Admission Past Medical History: Unchanged from Admission Objective Active Medications: Acetaminophen (Tylenol Tab*) 650 mg PO Q6H PRN PRN Reason: PAIN - MILD Last Admin: 01/01/20 07:37 Dose: 650 mg Albuterol (Ventolin Hfa Inhaler*) 2 puff INH Q2H PRN PRN Reason: SOB/WHEEZING Last Admin: 01/01/20 07:55 Dose: 2 puff Diphenhydramine HCl (Benadryl Po*) 25 mg PO Q6H PRN PRN Reason: ITCHING Last Admin: 01/01/20 01:00 Dose: 25 mg Docusate Sodium (Colace Cap*) 100 mg PO BID PRN PRN Reason: CONSTIPATION Last Admin: 01/01/20 07:37 Dose: 100 mg Enoxaparin Sodium (Lovenox(*)) 40 mg SUBCUT Q24H [facility] Last Admin: 01/01/20 07:37 Dose: 40 mg Guaifenesin/Codeine Phosphate (Robitussin Ac 100mg/10mg In 5 Ml) 5 ml PO Q4H PRN PRN Reason: COUGH Last Admin: 12/30/19 21:04 Dose: 5 ml Piperacillin Sod/Tazobactam (Sod 3.375 gm/ Sodium Chloride) 100 mls @ 25 mls/ hr IVPB Q8H [facility] Last Admin: 01/01/20 17:01 Dose: 25 mls/hr Lorazepam (Ativan Tab(*)) 0.5 mg PO Q6H PRN PRN Reason: ANXIETY Last Admin: 01/01/20 17:01 Dose: 0.5 mg Magnesium Hydroxide (Milk Of Magnesia Liq*) 30 ml PO Q6H PRN PRN Reason: CONSTIPATION Last Admin: 01/01/20 07:37 Dose: 30 ml Miscellaneous (Ativan Pyxis Vivas) 1 ea N/A .ATIVAN IV VIVAS PRN PRN Reason: PYXIS VIVAS Nystatin (Nystatin Oint*) 1 applic TOPICAL BID [facility] Last Admin: 01/01/20 07:37 Dose: 1 applic Oxycodone/Acetaminophen (Percocet 5/325 Tab*) 1 tab PO Q4H PRN PRN Reason: PAIN - MODERATE Last Admin: 01/01/20 17:01 Dose: 1 tab Senna (Senokot 8.6 Mg Tab*) 1 tab PO BEDTIME PRN PRN Reason: CONSTIPATION Last Admin: 12/31/19 21:30 Dose: 1 tab Vital Signs - 8 hr 01/01/20 17:01 Respiratory 18 Rate Oxygen Devices in Use Now: None Appearance: laying in bed, guarded but mild improvement Eyes: No Scleral Icterus Ears/Nose/Mouth/Throat: Clear Oropharnyx Respiratory: Symmetrical Chest Expansion and Respiratory Effort, Clear to Auscultation - tachypneic, deep breathing illicits cough with dry deep bronchial sounds but no other adventitious noises heard through lung mac Cardiovascular: RRR Abdominal: - - normoactive BS throughout, abdomen soft, tender to palpation to upper quadrants but not so much to lower quadrants Extremities: No Edema, - - PPP 2+ Skin: - - darkened red/purple area to lower L buttock and upper L thigh, smaller but similar looking area to L lower buttock and upper L thigh as well as bilateral upper inner thighs, all are soft to the touch, blanchable, no significant hardening/swelling/warmth/drainage. Blotchy red flat areas noted to R lower back, flanks, buttocks, posterior and anterior thighs, also blanchable, similar appearance from yesterdays assessment Neurological: Alert and Oriented x 3 Nutrition: Taking PO's Result Diagrams: 12/30/19 06:51 12/30/19 06:51 Additional Lab and Data: Abnormal Lab Results 12/29/19 09:25 COVID-19 PCR Undetected Laboratory Tests 12/28/19 12/28/19 12/28/19 22:47 22:47 22:47 WBC 6.8 RBC 4.39 Hgb 13.6 L Hct 40 L MCV 92 MCH 31 MCHC 34 RDW 14 Plt Count 262 MPV 8.2 Neut % (Auto) 54.9 Lymph % (Auto) 30.5 [place] % (Auto) 7.8 Eos % (Auto) 6.2 Baso % (Auto) 0.6 Absolute Neuts (auto) 3.7 Absolute Lymphs (auto) 2.1 Absolute Monos (auto) 0.5 Absolute Eos (auto) 0.4 Absolute Basos (auto) 0.0 Absolute Nucleated RBC 0.0 Nucleated RBC % 0.1 Sodium 140 Potassium 3.6 Chloride 107 Carbon Dioxide 26 Anion Gap 7 BUN 9 Creatinine 0.78 Est GFR ( Amer) 132.7 Est GFR (Non-Af Amer) 109.7 BUN/Creatinine Ratio 11.5 Glucose 90 Lactic Acid 1.0 Calcium 9.0 Total Bilirubin 0.40 AST 10 L ALT 8 Alkaline Phosphatase 47 Troponin I 0.00 C-Reactive Protein 6.98 Total Protein 6.2 L Albumin 3.9 Globulin 2.3 Albumin/Globulin Ratio 1.7 Urine Color Urine Appearance Urine pH Ur Specific [place] Urine Protein Urine Ketones Urine Blood Urine Nitrate Urine Bilirubin Urine Urobilinogen Ur Leukocyte Esterase Urine Glucose COVID-19 PCR 12/29/19 12/29/19 12/29/19 02:05 09:25 12:06 WBC RBC Hgb Hct MCV MCH MCHC RDW Plt Count MPV Neut % (Auto) Lymph % (Auto) [place] % (Auto) Eos % (Auto) Baso % (Auto) Absolute Neuts (auto) Absolute Lymphs (auto) Absolute Monos (auto) Absolute Eos (auto) Absolute Basos (auto) Absolute Nucleated RBC Nucleated RBC % Sodium Potassium Chloride Carbon Dioxide Anion Gap BUN Creatinine Est GFR ( Amer) Est GFR (Non-Af Amer) BUN/Creatinine Ratio Glucose Lactic Acid Calcium Total Bilirubin AST ALT Alkaline Phosphatase Troponin I 0.00 C-Reactive Protein Total Protein Albumin Globulin Albumin/Globulin Ratio Urine Color Straw Urine Appearance Clear Urine pH 5.0 Ur Specific [place] 1.019 Urine Protein Negative Urine Ketones Negative Urine Blood Negative Urine Nitrate Negative Urine Bilirubin Negative Urine Urobilinogen Negative Ur Leukocyte Esterase Negative Urine Glucose Negative COVID-19 PCR Undetected 12/30/19 12/30/19 12/31/19 06:51 06:51 15:59 WBC 6.3 RBC 4.22 Hgb 13.3 L Hct 39 L MCV 92 MCH 32 H MCHC 34 RDW 14 Plt Count 232 MPV 8.3 Neut % (Auto) 54.2 Lymph % (Auto) 30.7 [place] % (Auto) 8.5 Eos % (Auto) 6.0 Baso % (Auto) 0.6 Absolute Neuts (auto) 3.4 Absolute Lymphs (auto) 2.0 Absolute Monos (auto) 0.5 Absolute Eos (auto) 0.4 Absolute Basos (auto) 0.0 Absolute Nucleated RBC 0.0 Nucleated RBC % 0.1 Sodium 140 Potassium 4.3 Chloride 110 Carbon Dioxide 23 Anion Gap 7 BUN 10 Creatinine 0.78 Est GFR ( Amer) 132.7 Est GFR (Non-Af Amer) 109.7 BUN/Creatinine Ratio 12.8 Glucose 100 Lactic Acid Calcium 8.6 Total Bilirubin AST ALT Alkaline Phosphatase Troponin I 0.00 C-Reactive Protein 11.60 H Total Protein Albumin Globulin Albumin/Globulin Ratio Urine Color Urine Appearance Urine pH Ur Specific [place] Urine Protein Urine Ketones Urine Blood Urine Nitrate Urine Bilirubin Urine Urobilinogen Ur Leukocyte Esterase Urine Glucose COVID-19 PCR Microbiology and Other Data: Microbiology 12/31/19 00:00 Gram Stain - Final Sputum Expectorated 12/28/19 22:47 Aerobic Blood Culture - Preliminary Blood Venous No Growth Day 2 Anaerobic Blood Culture - Preliminary No Growth Day 2 12/28/19 22:27 Aerobic Blood Culture - Preliminary Blood Venous No Growth Day 2 Anaerobic Blood Culture - Preliminary No Growth Day 2 EKG Data: Abnormal Lab Results 12/31/19 15:59 Troponin I 0.00 Assess/Plan/Problems-Billing Assessment: Mr. Zarate is a 39 yo M with no significant PMH who presented to the ED with c/o pain and redness in the groin and was found to have extensive cellulitis. - Patient Problems (1) Cellulitis of groin Current Visit: Yes Status: Acute Code(s): L03.314 - CELLULITIS OF GROIN SNOMED Code(s): 43151445 Comment: - Nonpurulent, extending from buttocks to medial thighs - CT on admission showing cellulitis in bilat medial gluteal region extending into perianal area - Unclear etiology: trauma (scrubbing with gloves) vs insect bites - Significant improvement since my assessment yesterday. Much softer, much less erythema present, still no active drainage or area of obvious fluid collection for culture - D/c clindamycin in r/t rash - Continue zosyn for wide coverage including anaerobes -Also continue nystatin ointment again as there has been significant improvement with the current regimen and gela may be a component of this infection (2) Chest pain Current Visit: Yes Status: Acute Code(s): R07.9 - CHEST PAIN, UNSPECIFIED SNOMED Code(s): 21976140 Comment: Still with same pain, believes that the L-sided lateral chest pain he c/o today and yesterday was not present on arrival. Negative cardiac workup . Possible effusion vs pneumothorax? CXR ordered Continue to monitor (3) Cough Current Visit: Yes Status: Acute Code(s): R05 - COUGH SNOMED Code(s): 13179266 Comment: - Occasional nonproductive cough with reports of SOB - Cough is reported to be chronic from patient's mother (patient does smoke marijuana regularly) although pt states that this seems worse than usual, ? bronchitis, reports from nursing that pt's RR normal when unaware of staff observation, maintaining 94+% O2 SAT on RA, 99-100% on 1L NC, again has less distressed and ill appearance as he did yesterday - original CXR unremarkable -Awaiting results of second COVID-19 swab, first was negative but pt concerned sample not taken properly (4) History of dysuria Current Visit: Yes Status: Acute Code(s): Z87.898 - PERSONAL HISTORY OF OTHER SPECIFIED CONDITIONS SNOMED Code(s): 869004455 Comment: Had been reporting dysuria but denies currently - GC/chlamydia urine pending (5) DVT prophylaxis Current Visit: Yes Status: Acute Code(s): Z29.9 - ENCOUNTER FOR PROPHYLACTIC MEASURES, UNSPECIFIED SNOMED Code(s): 056014145 Comment: - Lovenox (6) Full code status Current Visit: Yes Status: Acute Code(s): Z78.9 - OTHER SPECIFIED HEALTH STATUS SNOMED Code(s): 027295384 Comment: Status and Disposition: Status: guarded Disposition: 4N Attending: Marco Antonio Lai
[2020-01-02] MEDS: diPHENhydraMINE PO* 25 MG PO PRN ×2 (03:08→10:17)
[2020-01-02] MEDS: Piperacillin/Tazobac ADVAN(*) 3.375 GM in NS 0.9% 100 ML* 100 ML IVPB SCH ×3 (09:18→23:46)
[2020-01-02 09:19] LABS: Chlamydia trachomatis NAA Negative (Negative); Neisseria gonorrhoeae (GC) NAA Negative (Negative)
[2020-01-02] MEDS: Enoxaparin(*) 40 MG/0.4 ML SYR SUBCUT SCH (09:19)
[2020-01-02] MEDS: Acetaminophen TAB* 325 MG PO PRN (09:21)
[2020-01-02] MEDS: Magnesium Hydroxide LIQ* 30 ML UDC PO PRN ×2 (09:22→20:50)
[2020-01-02] MEDS: Nystatin OINT* 15 GM TOPICAL SCH (09:22)
[2020-01-02] MEDS: oxyCODONE/Acetamin 5/325 MG* TAB PO PRN ×3 (10:17→20:51)
[2020-01-02] MEDS ORDERED: diPHENhydraMINE PO* 25 MG PO PRN (14:19)
--- NOTE | 2020-01-02 14:27 | PN ---
Subjective Date of Service: 01/02/20 Interval History: Pt continues to c/o L lateral chest pain as well as generalized CP of same character and intensity as past couple days. He does however appear less acutely ill than he did yesterday. Breathing easier and somewhat deeper. States that generalized itching is still present. Still having significant pain where cellulitic area to buttocks and upper/inner thighs are but admits these areas are softening. Family History: Unchanged from Admission Social History: Unchanged from Admission Past Medical History: Unchanged from Admission Objective Active Medications: Acetaminophen (Tylenol Tab*) 650 mg PO Q6H PRN PRN Reason: PAIN - MILD Last Admin: 01/02/20 09:21 Dose: 650 mg Albuterol (Ventolin Hfa Inhaler*) 2 puff INH Q2H PRN PRN Reason: SOB/WHEEZING Last Admin: 01/01/20 07:55 Dose: 2 puff Diphenhydramine HCl (Benadryl Po*) 50 mg PO Q8H PRN PRN Reason: ITCHING Docusate Sodium (Colace Cap*) 100 mg PO BID PRN PRN Reason: CONSTIPATION Last Admin: 01/01/20 22:17 Dose: 100 mg Enoxaparin Sodium (Lovenox(*)) 40 mg SUBCUT Q24H HEBER Last Admin: 01/02/20 09:19 Dose: 40 mg Guaifenesin/Codeine Phosphate (Robitussin Ac 100mg/10mg In 5 Ml) 5 ml PO Q4H PRN PRN Reason: COUGH Last Admin: 12/30/19 21:04 Dose: 5 ml Piperacillin Sod/Tazobactam (Sod 3.375 gm/ Sodium Chloride) 100 mls @ 25 mls/ hr IVPB Q8H HEBER Last Admin: 01/02/20 09:18 Dose: 25 mls/hr Lorazepam (Ativan Tab(*)) 0.5 mg PO Q6H PRN PRN Reason: ANXIETY Last Admin: 01/01/20 17:01 Dose: 0.5 mg Magnesium Hydroxide (Milk Of Magnesia Liq*) 30 ml PO Q6H PRN PRN Reason: CONSTIPATION Last Admin: 01/02/20 09:22 Dose: 30 ml Miscellaneous (Ativan Pyxis Bhatia) 1 ea N/A .ATIVAN IV BHATIA PRN PRN Reason: PYXIS BHATIA Nystatin (Nystatin Oint*) 1 applic TOPICAL BID HEBER Last Admin: 01/02/20 09:22 Dose: 1 applic Oxycodone/Acetaminophen (Percocet 5/325 Tab*) 1 tab PO Q4H PRN PRN Reason: PAIN - MODERATE Last Admin: 01/02/20 10:17 Dose: 1 tab Senna (Senokot 8.6 Mg Tab*) 1 tab PO BEDTIME PRN PRN Reason: CONSTIPATION Last Admin: 12/31/19 21:30 Dose: 1 tab Vital Signs - 8 hr 01/02/20 01/02/20 01/02/20 08:00 08:30 10:17 Temperature 97.0 F Pulse Rate 64 Respiratory 16 16 16 Rate Blood Pressure 108/58 (mmHg) O2 Sat by Pulse 95 Oximetry 01/02/20 01/02/20 10:19 12:17 Temperature 97.0 F Pulse Rate 69 Respiratory 16 17 Rate Blood Pressure 117/62 (mmHg) O2 Sat by Pulse 97 Oximetry Oxygen Devices in Use Now: None Appearance: sitting up in bed, guarded but not acutely ill Ears/Nose/Mouth/Throat: Clear Oropharnyx Respiratory: Symmetrical Chest Expansion and Respiratory Effort, - - Clear throughout R lung, L lung with with very mild but harsher expiratory bronchial- type sounds which are slightly more pronounced to the L lateral mid-lung region. No crackles or significant rhonchus noises. Cardiovascular: RRR - throughout all areas of auscultation, no murmurs/rubs/ gallops Abdominal: - - normoactive BSX4 Extremities: No Edema Skin: - - Darkened/erythematous areas to lower buttocks and upper posterior and inner thighs exhibit improvement, skin slightly dry, no drainage, blanchable. Erythema to R lower back and flanks present but less expansive than yesterday, some blotchy flat erythema on buttocks but not noted to thighs. Neurological: Alert and Oriented x 3 Nutrition: Taking PO's Result Diagrams: 12/30/19 06:51 12/30/19 06:51 Additional Lab and Data: Abnormal Lab Results 12/29/19 09:25 COVID-19 PCR Undetected Laboratory Tests 12/28/19 12/28/19 12/28/19 22:47 22:47 22:47 WBC 6.8 RBC 4.39 Hgb 13.6 L Hct 40 L MCV 92 MCH 31 MCHC 34 RDW 14 Plt Count 262 MPV 8.2 Neut % (Auto) 54.9 Lymph % (Auto) 30.5 [place] % (Auto) 7.8 Eos % (Auto) 6.2 Baso % (Auto) 0.6 Absolute Neuts (auto) 3.7 Absolute Lymphs (auto) 2.1 Absolute Monos (auto) 0.5 Absolute Eos (auto) 0.4 Absolute Basos (auto) 0.0 Absolute Nucleated RBC 0.0 Nucleated RBC % 0.1 Sodium 140 Potassium 3.6 Chloride 107 Carbon Dioxide 26 Anion Gap 7 BUN 9 Creatinine 0.78 Est GFR ( Amer) 132.7 Est GFR (Non-Af Amer) 109.7 BUN/Creatinine Ratio 11.5 Glucose 90 Lactic Acid 1.0 Calcium 9.0 Total Bilirubin 0.40 AST 10 L ALT 8 Alkaline Phosphatase 47 Troponin I 0.00 C-Reactive Protein 6.98 Total Protein 6.2 L Albumin 3.9 Globulin 2.3 Albumin/Globulin Ratio 1.7 Urine Color Urine Appearance Urine pH Ur Specific [place] Urine Protein Urine Ketones Urine Blood Urine Nitrate Urine Bilirubin Urine Urobilinogen Ur Leukocyte Esterase Urine Glucose COVID-19 PCR 12/29/19 12/29/19 12/29/19 02:05 09:25 12:06 WBC RBC Hgb Hct MCV MCH MCHC RDW Plt Count MPV Neut % (Auto) Lymph % (Auto) [place] % (Auto) Eos % (Auto) Baso % (Auto) Absolute Neuts (auto) Absolute Lymphs (auto) Absolute Monos (auto) Absolute Eos (auto) Absolute Basos (auto) Absolute Nucleated RBC Nucleated RBC % Sodium Potassium Chloride Carbon Dioxide Anion Gap BUN Creatinine Est GFR ( Amer) Est GFR (Non-Af Amer) BUN/Creatinine Ratio Glucose Lactic Acid Calcium Total Bilirubin AST ALT Alkaline Phosphatase Troponin I 0.00 C-Reactive Protein Total Protein Albumin Globulin Albumin/Globulin Ratio Urine Color Straw Urine Appearance Clear Urine pH 5.0 Ur Specific [place] 1.019 Urine Protein Negative Urine Ketones Negative Urine Blood Negative Urine Nitrate Negative Urine Bilirubin Negative Urine Urobilinogen Negative Ur Leukocyte Esterase Negative Urine Glucose Negative COVID-19 PCR Undetected 12/30/19 12/30/19 12/31/19 06:51 06:51 15:59 WBC 6.3 RBC 4.22 Hgb 13.3 L Hct 39 L MCV 92 MCH 32 H MCHC 34 RDW 14 Plt Count 232 MPV 8.3 Neut % (Auto) 54.2 Lymph % (Auto) 30.7 [place] % (Auto) 8.5 Eos % (Auto) 6.0 Baso % (Auto) 0.6 Absolute Neuts (auto) 3.4 Absolute Lymphs (auto) 2.0 Absolute Monos (auto) 0.5 Absolute Eos (auto) 0.4 Absolute Basos (auto) 0.0 Absolute Nucleated RBC 0.0 Nucleated RBC % 0.1 Sodium 140 Potassium 4.3 Chloride 110 Carbon Dioxide 23 Anion Gap 7 BUN 10 Creatinine 0.78 Est GFR ( Amer) 132.7 Est GFR (Non-Af Amer) 109.7 BUN/Creatinine Ratio 12.8 Glucose 100 Lactic Acid Calcium 8.6 Total Bilirubin AST ALT Alkaline Phosphatase Troponin I 0.00 C-Reactive Protein 11.60 H Total Protein Albumin Globulin Albumin/Globulin Ratio Urine Color Urine Appearance Urine pH Ur Specific [place] Urine Protein Urine Ketones Urine Blood Urine Nitrate Urine Bilirubin Urine Urobilinogen Ur Leukocyte Esterase Urine Glucose COVID-19 PCR Microbiology and Other Data: Microbiology 12/31/19 00:00 Gram Stain - Final Sputum Expectorated 12/28/19 22:47 Aerobic Blood Culture - Preliminary Blood Venous No Growth Day 2 Anaerobic Blood Culture - Preliminary No Growth Day 2 12/28/19 22:27 Aerobic Blood Culture - Preliminary Blood Venous No Growth Day 2 Anaerobic Blood Culture - Preliminary No Growth Day 2 EKG Data: Abnormal Lab Results 12/31/19 15:59 Troponin I 0.00 Assess/Plan/Problems-Billing Assessment: Mr. Zarate is a 39 yo M with no significant PMH who presented to the ED with c/o pain and redness in the groin and was found to have extensive cellulitis. - Patient Problems (1) Cellulitis of groin Current Visit: Yes Status: Acute Code(s): L03.314 - CELLULITIS OF GROIN SNOMED Code(s): 01263294 Comment: - Nonpurulent, extending from buttocks to medial thighs - CT on admission showing cellulitis in bilat medial gluteal region extending into perianal area - Unclear etiology: trauma (scrubbing with gloves) vs insect bites - Continued improvement but less impressive than noted yesterday. Softer, erythema present, still no active drainage or area of obvious fluid collection for culture - D/c clindamycin in r/t rash - Continue zosyn for wide coverage including anaerobes - d/c nystatin (2) Chest pain Current Visit: Yes Status: Acute Code(s): R07.9 - CHEST PAIN, UNSPECIFIED SNOMED Code(s): 07796246 Comment: Still with same pain, believes that the L-sided lateral chest pain he has c/o for the last few days was not present on arrival. Negative cardiac workup 12/30. CXR negative, likely viral respiratory illness causing moderate discomfort but respiratory status otherwise stable Continue to monitor (3) Cough Current Visit: Yes Status: Acute Code(s): R05 - COUGH SNOMED Code(s): 11569750 Comment: - Occasional nonproductive cough with reports of SOB however his appearance has dramatically improved since yesterday - Cough is reported to be chronic from patient's mother (patient does smoke marijuana regularly) although pt states that this seems worse than usual. -Sputum culture showing H.Flu which may have been from the mouth, not concerning for PNA with respiratory findings in conjunction with negative CXR On roomair, assuming at this point viral respiratory illness - see chest pain - COVID-19 ruled out 01/01 (4) History of dysuria Current Visit: Yes Status: Acute Code(s): Z87.898 - PERSONAL HISTORY OF OTHER SPECIFIED CONDITIONS SNOMED Code(s): 246372419 Comment: resolved - GC/chlamydia urine negative (5) DVT prophylaxis Current Visit: Yes Status: Acute Code(s): Z29.9 - ENCOUNTER FOR PROPHYLACTIC MEASURES, UNSPECIFIED SNOMED Code(s): 382039900 Comment: - Lovenox (6) Full code status Current Visit: Yes Status: Acute Code(s): Z78.9 - OTHER SPECIFIED HEALTH STATUS SNOMED Code(s): 752755093 Comment: Status and Disposition: Status: guarded Disposition: 4N Attending: Marco Antonio Lai
[2020-01-02] MEDS: diPHENhydraMINE PO* 50 MG PO PRN ×2 (15:29→23:46)
[2020-01-02] MEDS: LORazepam TAB(*) 0.5 MG PO PRN (20:51)
[2020-01-03] MEDS: oxyCODONE/Acetamin 5/325 MG* TAB PO PRN ×4 (03:57→21:05)
[2020-01-03] MEDS: Piperacillin/Tazobac ADVAN(*) 3.375 GM in NS 0.9% 100 ML* 100 ML IVPB SCH (09:21)
[2020-01-03] MEDS: Enoxaparin(*) 40 MG/0.4 ML SYR SUBCUT SCH (09:25)
[2020-01-03] MEDS: diPHENhydraMINE PO* 50 MG PO PRN (09:27)
[2020-01-03] MEDS: Cephalexin CAP* 500 MG PO SCH ×2 (15:31→21:05)
[2020-01-03] MEDS: diPHENhydraMINE PO* 50 MG PO SCH ×2 (15:33→23:03)
[2020-01-03] MEDS: Magnesium Hydroxide LIQ* 30 ML UDC PO PRN (15:38)
[2020-01-03] MEDS: Acetaminophen TAB* 325 MG PO PRN (17:02)
--- NOTE | 2020-01-03 17:48 | PN ---
Subjective Date of Service: 01/03/20 Interval History: Pt with a much healthier general appearance today. States that he is feeling much better. Still having chest/L lateral chest pain at times but not constant, thinks that it is more in relation to stress and anxiety. His respiratory s/s have otherwise resolved. He was able to take a walk outside with staff members earlier. He currently denies any headache, abdominal discomfort, difficulty with bowel or bladder, unusual numbness/tingling. Spoke about appropriate follow-up care once he is discharged. Family History: Unchanged from Admission Social History: Unchanged from Admission Past Medical History: Unchanged from Admission Objective Active Medications: Acetaminophen (Tylenol Tab*) 650 mg PO Q6H PRN PRN Reason: PAIN - MILD Last Admin: 01/03/20 17:02 Dose: 650 mg Albuterol (Ventolin Hfa Inhaler*) 2 puff INH Q2H PRN PRN Reason: SOB/WHEEZING Last Admin: 01/01/20 07:55 Dose: 2 puff Cephalexin HCl (Keflex Cap*) 500 mg PO TID [facility] Stop: 01/10/20 14:59 Last Admin: 01/03/20 15:31 Dose: 500 mg Diphenhydramine HCl (Benadryl Po*) 50 mg PO Q8H HEBER Last Admin: 01/03/20 15:33 Dose: 50 mg Docusate Sodium (Colace Cap*) 100 mg PO BID PRN PRN Reason: CONSTIPATION Last Admin: 01/01/20 22:17 Dose: 100 mg Enoxaparin Sodium (Lovenox(*)) 40 mg SUBCUT Q24H [facility] Last Admin: 01/03/20 09:25 Dose: 40 mg Famotidine (Pepcid Tab*) 20 mg PO BID [facility] Guaifenesin/Codeine Phosphate (Robitussin Ac 100mg/10mg In 5 Ml) 5 ml PO Q4H PRN PRN Reason: COUGH Last Admin: 12/30/19 21:04 Dose: 5 ml Lorazepam (Ativan Tab(*)) 0.5 mg PO Q6H PRN PRN Reason: ANXIETY Last Admin: 01/02/20 20:51 Dose: 0.5 mg Magnesium Hydroxide (Milk Of Magnesia Liq*) 30 ml PO Q6H PRN PRN Reason: CONSTIPATION Last Admin: 01/03/20 15:38 Dose: 30 ml Miscellaneous (Ativan Pyxis Bhatia) 1 ea N/A .ATIVAN IV BHATIA PRN PRN Reason: PYXIS BHATIA Oxycodone/Acetaminophen (Percocet 5/325 Tab*) 1 tab PO Q4H PRN PRN Reason: PAIN - MODERATE Last Admin: 01/03/20 15:39 Dose: 1 tab Senna (Senokot 8.6 Mg Tab*) 1 tab PO BEDTIME PRN PRN Reason: CONSTIPATION Last Admin: 12/31/19 21:30 Dose: 1 tab Vital Signs - 8 hr 01/03/20 01/03/20 01/03/20 10:57 11:55 15:33 Temperature 97.8 F Pulse Rate 71 Respiratory 20 17 20 Rate Blood Pressure 110/62 (mmHg) O2 Sat by Pulse 97 Oximetry 01/03/20 01/03/20 01/03/20 15:39 16:20 16:30 Temperature 97.9 F Pulse Rate 63 Respiratory 20 20 Rate Blood Pressure 105/56 116/80 (mmHg) O2 Sat by Pulse 98 Oximetry 01/03/20 17:24 Temperature Pulse Rate Respiratory 20 Rate Blood Pressure (mmHg) O2 Sat by Pulse Oximetry Oxygen Devices in Use Now: None Appearance: sitting up in bed, NAD Eyes: No Scleral Icterus Ears/Nose/Mouth/Throat: Clear Oropharnyx, Mucous Membranes Moist Respiratory: Symmetrical Chest Expansion and Respiratory Effort, Clear to Auscultation - with a very quiet expiratory wheeze to BEN[place], all other lobes clear Cardiovascular: RRR Abdominal: NL Sounds; No Tenderness; No Distention Extremities: No Edema Skin: - - dark red/purple areas noted to lower buttocks and upper thighs as well as upper inner thighs present, soft, no drainage, skin beginning to dry out especially to thighs. Flat erythematous rash to lower back and bilateral flanks Neurological: Alert and Oriented x 3 Nutrition: Taking PO's Result Diagrams: 12/30/19 06:51 12/30/19 06:51 Additional Lab and Data: Abnormal Lab Results 12/29/19 09:25 COVID-19 PCR Undetected Laboratory Tests 12/28/19 12/28/19 12/28/19 22:47 22:47 22:47 WBC 6.8 RBC 4.39 Hgb 13.6 L Hct 40 L MCV 92 MCH 31 MCHC 34 RDW 14 Plt Count 262 MPV 8.2 Neut % (Auto) 54.9 Lymph % (Auto) 30.5 [place] % (Auto) 7.8 Eos % (Auto) 6.2 Baso % (Auto) 0.6 Absolute Neuts (auto) 3.7 Absolute Lymphs (auto) 2.1 Absolute Monos (auto) 0.5 Absolute Eos (auto) 0.4 Absolute Basos (auto) 0.0 Absolute Nucleated RBC 0.0 Nucleated RBC % 0.1 Sodium 140 Potassium 3.6 Chloride 107 Carbon Dioxide 26 Anion Gap 7 BUN 9 Creatinine 0.78 Est GFR ( Amer) 132.7 Est GFR (Non-Af Amer) 109.7 BUN/Creatinine Ratio 11.5 Glucose 90 Lactic Acid 1.0 Calcium 9.0 Total Bilirubin 0.40 AST 10 L ALT 8 Alkaline Phosphatase 47 Troponin I 0.00 C-Reactive Protein 6.98 Total Protein 6.2 L Albumin 3.9 Globulin 2.3 Albumin/Globulin Ratio 1.7 Urine Color Urine Appearance Urine pH Ur Specific [place] Urine Protein Urine Ketones Urine Blood Urine Nitrate Urine Bilirubin Urine Urobilinogen Ur Leukocyte Esterase Urine Glucose COVID-19 PCR 12/29/19 12/29/19 12/29/19 02:05 09:25 12:06 WBC RBC Hgb Hct MCV MCH MCHC RDW Plt Count MPV Neut % (Auto) Lymph % (Auto) [place] % (Auto) Eos % (Auto) Baso % (Auto) Absolute Neuts (auto) Absolute Lymphs (auto) Absolute Monos (auto) Absolute Eos (auto) Absolute Basos (auto) Absolute Nucleated RBC Nucleated RBC % Sodium Potassium Chloride Carbon Dioxide Anion Gap BUN Creatinine Est GFR ( Amer) Est GFR (Non-Af Amer) BUN/Creatinine Ratio Glucose Lactic Acid Calcium Total Bilirubin AST ALT Alkaline Phosphatase Troponin I 0.00 C-Reactive Protein Total Protein Albumin Globulin Albumin/Globulin Ratio Urine Color Straw Urine Appearance Clear Urine pH 5.0 Ur Specific [place] 1.019 Urine Protein Negative Urine Ketones Negative Urine Blood Negative Urine Nitrate Negative Urine Bilirubin Negative Urine Urobilinogen Negative Ur Leukocyte Esterase Negative Urine Glucose Negative COVID-19 PCR Undetected 12/30/19 12/30/19 12/31/19 06:51 06:51 15:59 WBC 6.3 RBC 4.22 Hgb 13.3 L Hct 39 L MCV 92 MCH 32 H MCHC 34 RDW 14 Plt Count 232 MPV 8.3 Neut % (Auto) 54.2 Lymph % (Auto) 30.7 [place] % (Auto) 8.5 Eos % (Auto) 6.0 Baso % (Auto) 0.6 Absolute Neuts (auto) 3.4 Absolute Lymphs (auto) 2.0 Absolute Monos (auto) 0.5 Absolute Eos (auto) 0.4 Absolute Basos (auto) 0.0 Absolute Nucleated RBC 0.0 Nucleated RBC % 0.1 Sodium 140 Potassium 4.3 Chloride 110 Carbon Dioxide 23 Anion Gap 7 BUN 10 Creatinine 0.78 Est GFR ( Amer) 132.7 Est GFR (Non-Af Amer) 109.7 BUN/Creatinine Ratio 12.8 Glucose 100 Lactic Acid Calcium 8.6 Total Bilirubin AST ALT Alkaline Phosphatase Troponin I 0.00 C-Reactive Protein 11.60 H Total Protein Albumin Globulin Albumin/Globulin Ratio Urine Color Urine Appearance Urine pH Ur Specific [place] Urine Protein Urine Ketones Urine Blood Urine Nitrate Urine Bilirubin Urine Urobilinogen Ur Leukocyte Esterase Urine Glucose COVID-19 PCR Abnormal Lab Results 01/03/20 08:21 POC Glucose (mg/dL) 92 Microbiology and Other Data: Microbiology 12/31/19 00:00 Gram Stain - Final Sputum Expectorated 12/28/19 22:47 Aerobic Blood Culture - Preliminary Blood Venous No Growth Day 2 Anaerobic Blood Culture - Preliminary No Growth Day 2 12/28/19 22:27 Aerobic Blood Culture - Preliminary Blood Venous No Growth Day 2 Anaerobic Blood Culture - Preliminary No Growth Day 2 EKG Data: Abnormal Lab Results 12/31/19 15:59 Troponin I 0.00 Assess/Plan/Problems-Billing Assessment: Mr. Zarate is a 39 yo M with no significant PMH who presented to the ED with c/o pain and redness in the groin and was found to have extensive cellulitis. - Patient Problems (1) Cellulitis of groin Current Visit: Yes Status: Acute Code(s): L03.314 - CELLULITIS OF GROIN SNOMED Code(s): 28759278 Comment: - Nonpurulent, extending from buttocks to medial thighs - CT on admission showing cellulitis in bilat medial gluteal region extending into perianal area - Unclear etiology: trauma (scrubbing with gloves) vs insect bites - Continued improvement but less impressive than noted yesterday. Softer, erythema present, still no active drainage or area of obvious fluid collection for culture - D/c clindamycin in r/t rash, schedule benedryl and famotidine, assess response - d/c Zosyn and start Cephalexin - had significant improvement while not on coverage for MRSA, okay to continue with cephalosporin (2) Chest pain Current Visit: Yes Status: Acute Code(s): R07.9 - CHEST PAIN, UNSPECIFIED SNOMED Code(s): 89022371 Comment: Still with same pain but now intermittent, believes that the L- sided lateral chest pain he has c/o for the last few days, he now states that he realizes he has had this pain many times in the past and that he is now realizing that it is usually percipitated by stress or anxiety. Negative cardiac workup 12/30. CXR negative 01/01, still may have had some inflammatory process from a viral illness causing or exacerbating moderate discomfort but respiratory status otherwise stable I suspect that this truly may be a physical stress response We spoke about follow-up with a PCP and importance of self-care, has seen a therpist in the past with little help, has had a rx for wellbutrin in the past but only X1 and never followed up for a change or refill (3) Cough Current Visit: Yes Status: Acute Code(s): R05 - COUGH SNOMED Code(s): 49217207 Comment: - Occasional nonproductive cough, no longer reports SOB - Cough is reported to be chronic, has hx marijuanna smoking as well as 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) -Sputum culture showing H.Flu which may have been from the mouth, not concerning for PNA with respiratory findings in conjunction with negative CXR - COVID-19 ruled out 01/01 The exacerbation of his chronic cough has essentially resolved (4) History of dysuria Current Visit: Yes Status: Acute Code(s): Z87.898 - PERSONAL HISTORY OF OTHER SPECIFIED CONDITIONS SNOMED Code(s): 264489113 Comment: resolved - GC/chlamydia urine negative (5) DVT prophylaxis Current Visit: Yes Status: Acute Code(s): Z29.9 - ENCOUNTER FOR PROPHYLACTIC MEASURES, UNSPECIFIED SNOMED Code(s): 133519329 Comment: - Lovenox (6) Full code status Current Visit: Yes Status: Acute Code(s): Z78.9 - OTHER SPECIFIED HEALTH STATUS SNOMED Code(s): 006024182 Comment: Status and Disposition: Status: guarded Disposition: 4N Attending: Angella Key
[2020-01-03] MEDS: Famotidine TAB* 20 MG PO SCH (21:05)
[2020-01-03] MEDS: LORazepam TAB(*) 0.5 MG PO PRN (21:05)
[2020-01-03] MEDS: Senna TAB 8.6 mg* TAB PO PRN (23:03)
[2020-01-03] MEDS: Docusate CAP* 100 MG PO PRN (23:03)
[2020-01-04] MEDS: Enoxaparin(*) 40 MG/0.4 ML SYR SUBCUT SCH (08:13)
[2020-01-04] MEDS: oxyCODONE/Acetamin 5/325 MG* TAB PO PRN ×2 (08:14→14:31)
[2020-01-04] MEDS: Cephalexin CAP* 500 MG PO SCH ×2 (08:14→14:31)
[2020-01-04] MEDS: Famotidine TAB* 20 MG PO SCH (08:14)
[2020-01-04] MEDS: diPHENhydraMINE PO* 50 MG PO SCH ×2 (08:15→14:32)
--- NOTE | 2020-01-04 12:23 | DCNOTE ---
Subjective Date of Service: 01/04/20 Interval History: patient states he feels ready for D/C. He reports he has been set up with Medicaid. He reports little resources and currently out of work - has friends who are helping him obtain food. He plans to set himself up with a PCP. Family History: Unchanged from Admission Social History: Unchanged from Admission Past Medical History: Unchanged from Admission Objective Active Medications: Acetaminophen (Tylenol Tab*) 650 mg PO Q6H PRN PRN Reason: PAIN - MILD Last Admin: 01/03/20 17:02 Dose: 650 mg Albuterol (Ventolin Hfa Inhaler*) 2 puff INH Q2H PRN PRN Reason: SOB/WHEEZING Last Admin: 01/01/20 07:55 Dose: 2 puff Cephalexin HCl (Keflex Cap*) 500 mg PO TID [facility] Stop: 01/10/20 14:59 Last Admin: 01/04/20 08:14 Dose: 500 mg Diphenhydramine HCl (Benadryl Po*) 50 mg PO Q8H [facility] Last Admin: 01/04/20 08:15 Dose: 50 mg Docusate Sodium (Colace Cap*) 100 mg PO BID PRN PRN Reason: CONSTIPATION Last Admin: 01/03/20 23:03 Dose: 100 mg Enoxaparin Sodium (Lovenox(*)) 40 mg SUBCUT Q24H [facility] Last Admin: 01/04/20 08:13 Dose: 40 mg Famotidine (Pepcid Tab*) 20 mg PO BID [facility] Last Admin: 01/04/20 08:14 Dose: 20 mg Guaifenesin/Codeine Phosphate (Robitussin Ac 100mg/10mg In 5 Ml) 5 ml PO Q4H PRN PRN Reason: COUGH Last Admin: 12/30/19 21:04 Dose: 5 ml Lorazepam (Ativan Tab(*)) 0.5 mg PO Q6H PRN PRN Reason: ANXIETY Last Admin: 01/03/20 21:05 Dose: 0.5 mg Magnesium Hydroxide (Milk Of Magnesia Liq*) 30 ml PO Q6H PRN PRN Reason: CONSTIPATION Last Admin: 01/03/20 15:38 Dose: 30 ml Miscellaneous (Ativan Pyxis Bhatia) 1 ea N/A .ATIVAN IV BHATIA PRN PRN Reason: PYXIS BHATIA Oxycodone/Acetaminophen (Percocet 5/325 Tab*) 1 tab PO Q4H PRN PRN Reason: PAIN - MODERATE Last Admin: 01/04/20 08:14 Dose: 1 tab Senna (Senokot 8.6 Mg Tab*) 1 tab PO BEDTIME PRN PRN Reason: CONSTIPATION Last Admin: 01/03/20 23:03 Dose: 1 tab Vital Signs - 8 hr 01/04/20 01/04/20 01/04/20 07:30 08:00 08:14 Temperature 98.0 F Pulse Rate 59 Respiratory 16 16 16 Rate Blood Pressure 104/61 (mmHg) O2 Sat by Pulse 96 Oximetry 01/04/20 01/04/20 01/04/20 08:15 10:14 10:55 Temperature Pulse Rate Respiratory 16 16 16 Rate Blood Pressure (mmHg) O2 Sat by Pulse Oximetry 01/04/20 11:03 Temperature Pulse Rate 63 Respiratory 18 Rate Blood Pressure (mmHg) O2 Sat by Pulse 94 Oximetry Oxygen Devices in Use Now: None Appearance: A+Ox3 well developed male in NAD - appropriate Eyes: No Scleral Icterus, PERRLA Ears/Nose/Mouth/Throat: NL Teeth, Lips, Gums, Mucous Membranes Moist Neck: NL Appearance and Movements; NL JVP Respiratory: Symmetrical Chest Expansion and Respiratory Effort, Clear to Auscultation Cardiovascular: NL Sounds; No Murmurs; No JVD, RRR, No Edema Abdominal: NL Sounds; No Tenderness; No Distention Extremities: No Edema, No Clubbing, Cyanosis Skin: - - Bilateral Inner Thighs extended to lower bilateral buttock noted faded erythema, warm to touch. No drainaged or lesions noted. Neurological: Alert and Oriented x 3, NL Sensation, NL Gait, NL Muscle Strength and Tone Lines/Tubes/Other Access: Clean, Dry and Intact Peripheral IV Nutrition: Taking PO's Result Diagrams: 12/30/19 06:51 12/30/19 06:51 Microbiology and Other Data: Microbiology 12/31/19 00:00 Gram Stain - Final Sputum Expectorated 12/28/19 22:47 Aerobic Blood Culture - Preliminary Blood Venous No Growth Day 2 Anaerobic Blood Culture - Preliminary No Growth Day 2 12/28/19 22:27 Aerobic Blood Culture - Preliminary Blood Venous No Growth Day 2 Anaerobic Blood Culture - Preliminary No Growth Day 2 EKG Data: Abnormal Lab Results 12/31/19 15:59 Troponin I 0.00 Assess/Plan/Problems-Billing Assessment: Mr. Zarate is a 39 yo M with no significant PMH who presented to the ED with c/o pain and redness in the groin and was found to have extensive cellulitis. - Patient Problems (1) Cellulitis of groin Current Visit: Yes Comment: - reports much improvement over the last 24 hours - Nonpurulent, extending from buttocks to medial thighs - CT on admission showing cellulitis in bilat medial gluteal region extending into perianal area - Unclear etiology: trauma (scrubbing with gloves) vs insect bites - Continue benedryl for itching - Continue PO keflex (2) Chest pain Comment: Negative cardiac workup 12/30. No cough. Denies any CP today - feels that it is secondary to stress response CXR negative 01/01 We spoke about follow-up with a PCP and importance of self-care, as well as therapy. 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 Plan for DC today. Patient is being connected with Medicaid services. Was given information regarding obtaining a new PCP.
[2020-01-04 12:54] VITALS: BP 110/51
--- NOTE | 2020-01-04 14:55 | DS ---
DISCHARGE SUMMARY: DATE OF ADMISSION: 12/29/19 DATE OF DISCHARGE: 01/04/20 PROVIDER: Mathieu Smith NP ATTENDING PHYSICIAN: Dr. Key* (report dictated by Mathieu Smith NP). PRIMARY CARE PROVIDER: No PCP. The patient has been referred to [facility]. DISCHARGE DIAGNOSIS: Cellulitis of the inner groin/buttocks. SECONDARY DIAGNOSES: 1. Anxiety. 2. Distant history of depression. DISCHARGE MEDICATIONS: 1. Keflex 500 mg p.o. 4 times a day for 7 days. 2. Benadryl 25 mg p.o. q.6 hours p.r.n. itching. DISCHARGE SUMMARY: Mr. Zarate is a 39-year-old male with no significant past medical history, possible anxiety and distant history of depression, who presented to the emergency department on 12/29/19 with complaint of redness and pain in his perianal area, found to have bilateral inner thigh and buttocks cellulitis, nonpurulent. The patient underwent a CT, which had no evidence of abscess or gas. It is unclear the cause, thought secondary to trauma or insect bite. He does have noted scrotum piercing; however, this appeared to be normal without any cellulitis. He was started on clindamycin and then switched to Zosyn and yesterday was switched to Keflex p.o. which he will be sent home on today. The patient reports today that he has had great improvement over the past 24 hours and he is found to be stable to be discharged to home. The patient also on admission complained of dysuria and a urinalysis was sent as well as a culture for gonorrhea and chlamydia, which were negative. Blood cultures x2 had no noted growth. The patient's labs are fairly unremarkable, noting a CRP of 11. He is noted to have normocytic anemia, which should be followed up on as an outpatient. In regards to the patient's dysuria, these symptoms resolved. The patient did have a complaint of chest pain along with shortness of breath. He had 3 troponins trended, all of which were flat at 0. Normal EKG. As well as, he underwent a chest x-ray, which showed no evidence for acute cardiopulmonary process. The patient does admit to a chronic cough and does intermittently smoke cannabis. He has noted throughout his hospitalization this cough has resolved. In regards to chest discomfort or shortness of breath , he did admit that this comes at times when he feels anxious and has noted this to be chronic symptoms he has dealt with for many years. Today on discharge, the patient is alert and oriented x3. He offers no complaints. He reports over the past 24 hours, his cellulitis has greatly improved. He continues to have itching in his inner thighs and feels that the Benadryl does help. 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 He reports that he does have a setup to self-bathe and feels that he is in a safe living environment. 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 Throughout the hospitalization, he has been set up with adoption social worker to include a caseworker protective services and Medicaid. It was discussed with the patient at length establishing with primary care provider in which he has been referred to [facility]. DISPOSITION: Stable for discharge to home. Please see full medical record for labs and imaging. DISCHARGE PLAN: 1. Discharge to home. 2. Plan for Keflex 500 mg p.o. 4 times a day for 7 days. 3. The patient has been referred to [facility] for followup. 4. The patient has been given information regarding connecting with adoption social worker/Medicaid, which he has been set up for in the hospital. 5. The patient has been instructed to return with any concerning or worsening symptoms TIME SPENT: Approximately 60 minutes were spent on this discharge. MATHIEU SMITH NP [id number]/CPS #: [id number] ALIN
== END 2020-01-04 15:15 | disposition home or self-care (01) | DRG 383 ==
LOC: ED 21:43 → SSU 12-29 00:51 → MED 12-29 09:25 → OBSVTOIN 12-30 14:21 → MEDTELE 01-02 16:52
PROVIDERS: ADMIT Pediatrics; ATTEND Internal Medicine
DX: L03.317 Cellulitis of buttock (principal); L03.314 Cellulitis of groin; F41.9 Anxiety disorder, unspecified; F32.9 Major depressive disorder, single episode, unspecified; R07.89 Other chest pain; R30.0 Dysuria; D64.9 Anemia, unspecified; R05 Cough; R06.02 Shortness of breath; W57.XXXA Bitten or stung by nonvenomous insect and other nonvenomous arthropods, initial encounter; Y92.9 Unspecified place or not applicable
CPT/HCPCS: 36415; 71045; 71046; 72193; 80048; 80053; 81003; 83605; 84484; 85025; 86140; 87040; 87070; 87077; 87205; 87491; 87591; 87635; 93005; 96365; 96367; 99283; A9270-GY; G0378; G2023; J1650; J2060; J2270; J2543; J3370; Q9967